=== PATIENT | female | born 1950 | race Caucasian/White ===

== ENCOUNTER 2016-06-23 21:21 | Emergency (ER) | payer MEDICARE, MEDICAID ==
[2016-06-23] MEDS ORDERED: AZITHROMYCIN 250 MG TAB ONE (23:48)
[2016-06-23] MEDS ORDERED: CEFTRIAXONE 1 GM VIAL ONE (23:49)
[2016-06-23] MEDS ORDERED: SODIUM CHLORIDE 0.9% 100 ML IV ONE (23:49)
== END 2016-06-24 01:12 | disposition home or self-care (01) ==
LOC: ER 21:21
DX: J18.0 Bronchopneumonia, unspecified organism (principal); S80.01XA Contusion of right knee, initial encounter; S80.11XA Contusion of right lower leg, initial encounter; S90.01XA Contusion of right ankle, initial encounter; S90.31XA Contusion of right foot, initial encounter; W19.XXXA Unspecified fall, initial encounter; Y93.89 Activity, other specified; Y92.008 Other place in unspecified non-institutional (private) residence as the place of occurrence of the external cause; S83.421A Sprain of lateral collateral ligament of right knee, initial encounter; S93.491A Sprain of other ligament of right ankle, initial encounter; Z79.899 Other long term (current) drug therapy; F17.210 Nicotine dependence, cigarettes, uncomplicated
CPT/HCPCS: 36415; 71020; 73562; 73590; 73610; 80053; 83605; 85025; 87040; 96365; 99284; J0696